=== PATIENT | male | born 2000 | race Caucasian/White ===

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

== ENCOUNTER → 2022-06-03 | Outpatient (CLI) | payer BC | END | disposition home or self-care (01) | LOC: RAD 12:49 | PROVIDERS: ATTEND Chiropractor | DX: M41.83 Other forms of scoliosis, cervicothoracic region (principal) ==